=== PATIENT | female | born 1940 | race Caucasian/White ===

== ENCOUNTER 2019-01-25 13:54 | Inpatient (IN) ==
[2019-01-25] MEDS ORDERED: DUONEB (A & A) INH ONE (14:35)
[2019-01-25] MEDS ORDERED: ALBUTEROL NEB INH ONE (14:35)
[2019-01-25 15:10] LABS: BASO# 0.03 X1000 (0.0-0.2); BASO% 0.2 % (0.0-0.8); EOS# 0.02 X1000 (0.0-0.7); EOS% 0.2 % (0.0-10.0); HEMATOCRIT 35.3 % (37.0-47.0); HEMOGLOBIN 11.3 g/dL (12.0-16.0); IMM GRAN# 0.05 X1000 (0.0-0.04); IMM GRAN% 0.4 % (0.0-0.5); LYMPH# 1.87 X1000 (1.2-3.4); LYMPH% 14.9 % (20.5-51.1); MCH 32.6 PG (27-31); MCV 101.7 FL (81-99); MONO# 1.97 X1000 (0.11-0.59); MONO% 15.7 % (1.7-9.3); MPV 11.2 FL (7.4-10.4); NEUT# 8.57 X1000 (1.4-6.5); NEUT% 68.6 % (42.2-75.2); PLT 236 X1000 (130-400); RBC 3.47 XMIL (4.2-5.4); RDW 13.4 % (11.5-14.5); WBC 12.51 X1000 (4.8-10.8)
[2019-01-25 15:28] LABS: ALBUMIN 4.2 g/dL (3.5-5.0); CALCIUM 10.5 mg/dL (8.8-10.2); CREATININE 1.2 mg/dL (0.5-0.9); POTASSIUM 4.4 mmol/L (3.5-5.1); TOTAL BILIRUBIN 0.5 mg/dL (0.20-1.00)
[2019-01-25 15:52] LABS: BANDS 8 % (0-1); LYMPHS 14 % (21-51); MONO 14 % (1-9); SEGS 64 % (42-75)
[2019-01-25 15:53] LABS: ANISOCYTOSIS OCCASIONAL
[2019-01-25 15:54] LABS: LARGE PLATELETS 2+
--- NOTE | 2019-01-25 16:23 | Diag Imaging Result Doc PS360 ---
EXAM: CHEST-1 VIEW 01/25/2019 HISTORY: SOB TECHNIQUE: AP portable at 1545 COMMENT: There is slightly increased interstitial markings in the lung bases, however the lungs are not as well-expanded as on 05/30/2018. The heart size is not enlarged. IMPRESSION: Questionable interstitial pulmonary edema. Electronically signed by Rajendra Lagos 01/25/2019 4:21 PM
--- NOTE | 2019-01-25 16:57 | PROVIDER DOCUMENTATION ---
This chart was entered by Kristine Ribera Scribe, acting as scribe for Chema Araya MD. HPI-General Adult - General Chief Complaint: Cough Stated Complaint: COPD, COLD SX Time Seen by Provider: 01/25/19 14:22 Source: patient, family Allergies/Adverse Reactions: Patient Allergies Allergy/AdvReac Type Severity Reaction Status Date / Time codeine [Codeine] AdvReac Severe NAUSEA/VOMI Verified 01/25/19 14:11 TING hydrocodone bitartrate * AdvReac Severe NAUSEA/VOMI Verified 01/25/19 14:11 [From Correll] TING hydromorphone HCl * AdvReac Severe NAUSEA/VOMI Verified 01/25/19 14:11 [From Dilaudid] TING meperidine HCl * AdvReac Severe NAUSEA/VOMI Verified 01/25/19 14:11 [From Demerol] TING morphine AdvReac Severe NAUSEA/VOMI Verified 01/25/19 14:11 TING Home Medications: Home Medication List Medication Instructions Recorded Confirmed Last Taken Type Esomeprazole [Nexium] 40 mg PO DAILY 03/25/12 01/25/19 04/16/15 10:00 History 40 Metoprolol Tartrate 50 mg PO BID 07/07/14 01/25/19 04/17/15 05:30 History 50 Losartan Potassium [Cozaar] 100 mg PO HS 03/11/15 01/25/19 04/16/15 20:00 History 100 Simvastatin [Zocor] 80 mg PO HS 03/11/15 01/25/19 04/16/15 20:00 History 80 Verapamil HCl [Verelan] 240 mg PO DAILY 03/11/15 01/25/19 04/17/15 05:30 History 240 - History of Present Illness -Gen Adult Nature of Presenting Problems: 78 yof presents to the ed with c/o sob worsening with exertion, bodyaches, productive cough with gren sputum and subjective fever for 2 days. pt oes sts she has COPD Location of Pain/Injury: reports: generalized (bodyaches) Quality of Pain: reports: aching Severity: reports: mild Onset/Duration: reports: 2 days ago Timing: reports: still present, intermittent Context/Activities at Onset: reports: light activity Modifying Factors: worse with: exercise Associated Symptoms: reports: back/neck pain (thoracic), fatigue, fever/chills, muscle aches, shortness of breath. denies: chest pain, nausea, vomiting Similar Symptoms Previously?: Yes (hx of COPD) Recently seen or treated by another doctor?: No Review of Systems - Adult - REVIEW OF SYSTEMS - ADULT Constitutional: reports: see HPI, chills, fever, fatique Eyes: reports: no symptoms reported Ears, Nose, Mouth & Throat: reports: no symptoms reported Cardiovascular: denies: chest pain, palpitations Respiratory: reports: cough (green sputum), dyspnea on exertion, shortness of breath Gastrointestinal: denies: abdominal pain, diarrhea, nausea, vomiting Genitourinary: reports: no symptoms reported Musculoskeletal: reports: see HPI, back pain (thoracic), muscle aches. denies: neck pain Integumentary: reports: no symptoms reported Neurological: denies: dizziness/vertigo, headache/migraines Psychiatric: reports: no symptoms reported Endocrine: reports: no symptoms reported Hematologic/Lymphatic: reports: no symptoms reported Allergic/Immunologic: reports: no symptoms reported All Other Systems: Reviewed and Negative Past History - Adult - PAST MEDICAL HISTORY-ADULT Review of Records: reports: Old Records Reviewed, Nursing Assessment Review, Medications Reviewed, Social history reviewed & non-contributory. Major Childhood Illnesses: reports: denies history Cardiovascular: reports: CAD, HTN, hyperlipidemia Respiratory: reports: denies history Gastrointestinal: reports: GERD Obstetrical/Gynecological: reports: denies history Genitourinary: reports: denies history Musculoskeletal: reports: denies history Hand Dominance: Right Handed Neurological: reports: denies history Psychiatric: reports: denies history Endocrine/Immune: reports: denies history Other Conditions: reports: denies history - PRIOR SURGERIES/PROCEDURES Surgical/Procedure History: reports: cholecystectomy, hysterectomy, , orthopedic (extremity) (knee ), other (brain; bladder tact) - PRIOR HOSPITALIZATIONS Prior Hospitalizations: reports: for other non-related - IMMUNIZATION STATUS Childhood Immunizations: See Nurse Assessment Flu Vaccine: See Nurse Assessment - FAMILY HISTORY Family History: reviewed, not pertinent - SOCIAL HISTORY Smoking: quit greater than 1 year Substance Use: denies Living Situation: family Physical Exam-General - PHYSICAL EXAM-ADULT Initial Vital Signs Reviewed: Yes - CONSTITUTIONAL General Appearance: appears well, alert, mild distress, obese - EYES Eyes: PERRL/EOMI, pink conjunctivae - HEAD, EARS, NOSE, MOUTH & THROAT HENMT: normocephalic/atraumatic, moist mucous membranes - NECK Neck: non-tender, full range of motion, supple, normal inspection - RESPIRATORY Respiratory: respiratory distress (mild), decreased breath sounds, other (89% on RA) - CARDIOVASCULAR Cardiovascular: normal peripheral pulses, regular rate, rhythm - CHEST (BREASTS) Chest/Breast: deferred - GASTROINTESTINAL (ABDOMEN) Abdominal Exam: normal bowel sounds, non tender, soft - GENITOURINARY Female Genitalia/Pelvic Exam: deferred Rectal Exam: deferred Hemoccult Exam: deferred - LYMPHATIC Lymphatic: no adenopathy - MUSCULOSKELETAL Back Exam: normal inspection, no CVA tenderness, no vertebral tenderness, other (upper thoracic back tenderness with palpation) Extremity: normal range of motion, non-tender, normal inspection, no pedal edema Progress - PLAN OF CARE/RESULTS Progress/Plan/Lab Results: Vital Signs - 8 hr 01/25/19 14:06 Temperature 98.1 F Pulse Rate 76 Respiratory Rate 22 Blood Pressure 115/54 O2 Sat by Pulse Oximetry 89 L Orders Category Date Time Status CHEST-1 VIEW [RAD] Stat Exams 01/25/19 14:35 Ordered BLOOD CULTURE [BLDCUL] Stat Lab 01/25/19 14:35 Uncollected CBC WITH DIFF [HEME] Stat Lab 01/25/19 14:34 Uncollected COMPREHENSIVE METABOLIC PANEL [CHEM] Stat Lab 01/25/19 14:35 Uncollected Albuterol 2.5MG/Ipratrop 0.5MG [Duoneb (A & A)] Med 01/25/19 14:35 Discont inued 3 ml INH NOW ONE Albuterol [Albuterol Neb] Med 01/25/19 14:35 Discontinued 5 mg INH NOW ONE Aerosol Treatments Routine Oth 01/25/19 14:35 Active Aerosol Treatments Stat Oth 01/25/19 14:35 Active Result Diagrams: 01/25/19 14:51 01/25/19 14:51 - REASSESSMENT Reassessment #1 Time Reassessed: 16:53 (pt sts feels better but when pt came off O2 sat dropped to 89% so pt was placed back on NC and dr rust hospitalist was paged to admit) Status: improving - XRAY 1 XRAY: Bilateral XRAY Study: Chest Impression: See EMR Report (EXAM: CHEST-1 VIEW 01/25/2019 HISTORY: SOB TECHNIQUE: AP portable at 1545 COMMENT: There is slightly increased interstitial markings in the lung bases, however the lungs are not as well- expanded as on 05/30/2018. The heart size is not enlarged. IMPRESSION: Questionable interstitial pulmonary edema. Electronically signed by Rajendra Lagos 01/25/2019 4:21 PM 01/25/19 1621 Interpreting Physician: Rajendra Lagos MD Dictated Date/Time: 01/25/19 1620 cc: Chema Araya MD; Nelly Hair MD) - CONSULTS/PCP/HOSPITALIST Notification #1 *Consult/PCP/Hospitalist*: hospitalist dr rust Time Discussed: 16:54 Consult Disposition: Admit Departure - Departure Date of Disposition Decision: 01/25/19 Time of Disposition Decision: 16:57 DIAGNOSIS: COPD exacerbation, Hypoxia Disposition: ADMITTED INPATIENT 09 Certified Medical Emergency: Emergent Condition: Stable Referrals and Follow-Ups: Nelly Hair MD [Primary Care Provider] - - Critical Care Note This patient required my direct & personal management of CC.: No Attestation - Physician/ YULI Attestation Patient care was provided by Advanced Practice Provider:: No The physician spent face to face time with patient:: Yes Advanced Practice Provider documentation review:: Supervising physician onsite and consulted in the evaluation and care of this patient. The physician did have a face to face encounter with the patient. This chart was documented by the indicated scribe, (Kristine Ribera Scribe) and accurately reflects the services I performed and decisions made by me, Chema Araya MD, as attested by the provider's signature.
--- NOTE | 2019-01-25 19:43 | HISTORY AND PHYSICAL ---
PRIMARY CARE PROVIDER: Dr. Nelly Hair. [facility] TECHNICIAN: Dr. Swift. CHIEF COMPLAINT: Shortness of breath. HISTORY OF PRESENT ILLNESS: Ms. Perea is a 78-year-old female, who carries a past medical history of coronary artery disease, hypertension, hyperlipidemia, GERD, COPD, hard of hearing, wears bilateral hearing aids, who reported yesterday she started having some shortness of breath with fever, chills, wheezing, a productive cough with greenish sputum. She reports a couple months ago she was diagnosed with a UTI. She was placed on antibiotics. After finishing her course of antibiotics, she developed an upper respiratory infection. She went to see her [employer] who felt that she was still having a lingering upper respiratory infection and placed her on antibiotics again. She she felt she got better and again after she finished a round of antibiotics, the next day she felt her upper respiratory infection and came back, and has felt like her chest has been junky since that time. However, her shortness of breath did not start until yesterday. Workup in the ED did show a mild leukocytosis with a white count of 12. Chest x- ray showed a questionable interstitial pulmonary edema. She was placed on supplemental O2 and given bronchodilator. She did have some improvement. However, when they would try to take her off the supplemental O2, her O2 saturations would go back into the 80s, so the ED has called for admission for COPD exacerbation. She is currently refusing to have IV steroids secondary to an allergy that causes hypertension. PAST MEDICAL HISTORY: 1. COPD. 2. Hard of hearing, bilateral hearing aids. 3. Coronary artery disease. 4. Hypertension. 5. Hyperlipidemia. 6. Gastroesophageal reflux disease. PAST SURGICAL HISTORY: 1. Cholecystectomy. 2. Partial hysterectomy. 3. section. 4. Knee surgery. 5. Brain compression surgery by Dr. Hoyt. 6. Bladder tack. FAMILY HISTORY: Father from some type of cancer in his lung cavity, but no diabetes, no heart disease. SOCIAL HISTORY: She has 5 children, 19 grandchildren, 22 great-grandchildren. She quit smoking 2 years ago. She had smoked for 50 years, 2 packs per day. No alcohol or illicit drug use. ALLERGIES: 1. Steroids, causes hypertension. 2. Codeine, nausea, vomiting. 3. [place], nausea, vomiting. 4. Dilaudid, nausea, vomiting. 5. Demerol, nausea, vomiting. 6. Morphine, nausea, vomiting. HOME MEDICATIONS: 1. Nexium 40 mg p.o. daily. 2. Cozaar 100 mg p.o. at bedtime. 3. Metoprolol 50 mg p.o. b.i.d. 4. Zocor 80 mg p.o. at bedtime. 5. Verelan 240 mg p.o. daily. REVIEW OF SYSTEMS: Twelve-point review of systems complete and negative except for those mentioned in HPI. Negative for headache, chest pain, palpitations, nausea, vomiting, diarrhea, constipation, dysuria, bright red or dark tarry stools. PHYSICAL EXAMINATION: VITAL SIGNS: Temperature is 98.3 degrees, heart rate 84, respirations 22, blood pressure 119/93, O2 is 94% on 2 L nasal cannula. GENERAL: Ms. Perea is a pleasant, 78-year-old female who is sitting up in the stretcher in no acute distress. HEENT: Atraumatic, normocephalic. PERRL. NECK: Supple. Trachea midline. CARDIOVASCULAR: S1, S2 appreciated. No murmurs, gallops, or rubs noted. RESPIRATORY: Lung sounds tight. She does have some mild expiratory wheezes, bilaterally decreased in the bases. GI: Soft, nontender, nondistended. Positive bowel sounds in 4 quads. EXTREMITIES: Lower extremities are negative for edema. Bilateral pedal pulses are palpable. She moves all extremities well. NEUROLOGIC: No focal deficits noted. She is hard of hearing with two hearing aids in. DIAGNOSTIC DATA: Chest x-ray: Questionable interstitial pulmonary edema. LABORATORY DATA: White count 12, hemoglobin and hematocrit 11 and 35, platelet count is 236,000. Sodium 140, potassium 4.4, BUN 20, creatinine 1.2, blood glucose is 109, calcium 10.5. ProBNP is 747. ASSESSMENT AND PLAN: 1. Chronic obstructive pulmonary disease exacerbation. Will continue with supplemental oxygen, bronchodilators, intravenous antibiotics, aggressive pulmonary toilet. The patient refuses steroids, citing an allergy of hypertension. We did discuss that could just be a side effect; however, she states adamantly that she cannot take it or tolerate it. Blood cultures and sputum cultures will be obtained. 2. Hypoxia. Will continue on supplemental oxygen. 3. Hypertension. Will continue home medications. 4. Hyperlipidemia. Continue statin. 5. Gastroesophageal reflux disease. Continue proton pump inhibitor. 6. Further recommendations to follow physician evaluation and laboratory and diagnostic data. Dictated by ROSA Aguiar for Juan Pablo Garcia MD cc: Juan Pablo Garcia MD
[2019-01-25] MEDS ORDERED: NS 1,000 ML IV SCH (20:12)
[2019-01-25] MEDS ORDERED: ZOFRAN IV PRN (20:12)
[2019-01-25] MEDS ORDERED: DUONEB (A & A) INH PRN (20:12)
[2019-01-25] MEDS: DUONEB (A & A) INH SCH ×2 (20:22→23:54)
[2019-01-25] MEDS: COZAAR PO SCH (21:40)
[2019-01-25 22:23] LABS: URINE SOURCE CLEAN CATCH
[2019-01-25] MEDS: TYLENOL PO PRN (22:23)
[2019-01-25] MEDS: ZOCOR PO SCH (22:23)
[2019-01-25] MEDS: LEVAQUIN 500 MG/D5W 500 MG/100 ML IVPB IV SCH (22:24)
[2019-01-25] MEDS: MUCINEX PO SCH (22:24)
[2019-01-25 22:28] LABS: BILIRUBIN URINE NEGATIVE (NEGATIVE); BLOOD URINE NEGATIVE (NEGATIVE); COLOR YELLOW; GLUCOSE URINE NEGATIVE (NEGATIVE); KETONE URINE TRACE mg/dL (NEGATIVE); LEUKOCYTES URINE LARGE (NEGATIVE); NITRITE URINE NEGATIVE (NEGATIVE); PROTEIN URINE 50 mg/dL (NEGATIVE); SP GRAVITY URINE 1.027; TURBIDITY URINE HAZY (CLEAR); UROBILINOGEN URINE 3 mg/dL (NORMAL)
[2019-01-25 22:43] LABS: URINE WBC TNTC /HPF (<10)
[2019-01-25 22:45] LABS: URINE RBC <10 /HPF (<10)
[2019-01-25 22:46] LABS: UR EPITHELIAL CELLS >10 /HPF (<10); URINE BACTERIA 4+ /HPF; URINE CASTS EPITHELIAL PRESENT; URINE CRYSTALS NONE SEEN; URINE SMALL ROUND CELLS NONE SEEN
[2019-01-25 22:47] LABS: URINE YEAST PRESENT
--- NOTE | 2019-01-25 23:37 | HISTORY AND PHYSICAL ---
ADDENDUM: Patient seen and examined by myself. Full note dictated and discussed with nurse practitioner. The patient presented to the hospital with increased cough and congestion, and increased work of breathing. She noted that she was at home, she got in the shower and she got very hot and lightheaded. She states she was not sure if she was going to be able to finish or not due to her shortness of breath. Her children then made her come to the hospital. Currently, she is awake, alert, oriented. Pleasant. We are going to admit her to the hospital, place her on breathing treatments, oxygen and will follow. cc: Juan Pablo Garcia MD MTDD
[2019-01-26] MEDS: DUONEB (A & A) INH SCH ×6 (03:14→23:18)
--- NOTE | 2019-01-26 05:59 | Diag Imaging Result Doc PS360 ---
EXAM: CHEST-PORTABLE HISTORY: short of breath TECHNIQUE: Single view COMPARISON: 01/25/2019 FINDINGS: The lungs are well expanded. No cardiomegaly. The bilateral infiltrates. Questionable tiny left pleural effusion. IMPRESSION: Mild interval worsening Electronically signed by Jono Field 01/26/2019 5:56 AM
[2019-01-26] MEDS: NEXIUM PO SCH (06:20)
[2019-01-26 06:46] LABS: BASO# 0.01 X1000 (0.0-0.2); BASO% 0.1 % (0.0-0.8); EOS# 0.02 X1000 (0.0-0.7); EOS% 0.2 % (0.0-10.0); HEMATOCRIT 31.1 % (37.0-47.0); HEMOGLOBIN 9.7 g/dL (12.0-16.0); IMM GRAN# 0.09 X1000 (0.0-0.04); IMM GRAN% 0.9 % (0.0-0.5); LYMPH% 14.1 % (20.5-51.1); MCHC 31.2 g/dL (33-37); MCV 102.6 FL (81-99); MONO# 1.83 X1000 (0.11-0.59); MONO% 18.4 % (1.7-9.3); MPV 11.5 FL (7.4-10.4); NEUT% 66.3 % (42.2-75.2); PLT 214 X1000 (130-400); RBC 3.03 XMIL (4.2-5.4); RDW 13.4 % (11.5-14.5); WBC 9.95 X1000 (4.8-10.8)
[2019-01-26 06:55] LABS: POTASSIUM 3.9 mmol/L (3.5-5.1)
[2019-01-26 07:06] LABS: ANISOCYTOSIS 1+; LYMPHS 17 % (21-51); MONO 16 % (1-9); SEGS 67 % (42-75)
[2019-01-26] MEDS: TYLENOL PO PRN (08:12)
[2019-01-26] MEDS: MUCINEX PO SCH ×2 (08:12→20:19)
[2019-01-26] MEDS ORDERED: LASIX IV ONE (10:41)
[2019-01-26] MEDS ORDERED: SEROQUEL PO PRN (10:42)
[2019-01-26] MEDS ORDERED: SOLU-MEDROL IV ONE (10:42)
--- NOTE | 2019-01-26 15:43 | PROGRESS NOTE ---
DATE: 01/26/2019 SUBJECTIVE: Patient with no new complaints. States she is still short of breath, still coughing, still having difficulty getting out of bed due to her fatigue. OBJECTIVE: Vital Signs: T-max 101 degrees, pulse 81, respiratory rate 18, BP 127/42. General: Patient is in minimal respiratory distress, although she is lying flatly in the bed and has just received a breathing treatment. HEENT: Normocephalic. Neck: Supple. Cardiovascular: Regular rate. Chest: Clear but decreased breath sounds bilaterally. No rhonchi. No current wheezing. Abdomen: Soft, nondistended. Extremities: Moves all extremities. No edema. Neurologic: No changes. ASSESSMENT: 1. Chronic obstructive pulmonary disease with exacerbation. 2. History of congestive heart failure per the family. 3. Hypoxemia. 4. Hypertension. 5. Hyperlipidemia. 6. Leukocytosis. 7. Anemia of chronic disease with hemoglobin and hematocrit of 9 and 37. PLAN: We are going to continue patient in the hospital. We are going to give her 1 low dose [address]rol[address] her on Lasix. Stop her IV fluids. Continue breathing treatments, oxygen, and will follow. cc: Juan Pablo Garcia MD
[2019-01-26] MEDS: ISOPTIN SR PO SCH (16:09)
[2019-01-26] MEDS: LOPRESSOR PO SCH ×2 (16:10→20:20)
[2019-01-26] MEDS: COZAAR PO SCH (20:20)
[2019-01-26] MEDS: LEVAQUIN 500 MG/D5W 500 MG/100 ML IVPB IV SCH (20:20)
[2019-01-26] MEDS: ZOCOR PO SCH (20:20)
[2019-01-27] MEDS: DUONEB (A & A) INH SCH ×3 (02:49→12:07)
[2019-01-27] MEDS: NEXIUM PO SCH (06:04)
[2019-01-27 07:43] VITALS: BP 117/62
[2019-01-27] MEDS: LOPRESSOR PO SCH (09:03)
[2019-01-27] MEDS: ISOPTIN SR PO SCH (09:03)
--- NOTE | 2019-01-27 09:43 | DISCHARGE SUMMARY ---
ADMISSION DATE: 01/25/2019 DISCHARGE DATE: 01/27/2019 DISCHARGE DIAGNOSES: 1. Chronic obstructive pulmonary disease with exacerbation. 2. Leukocytosis, resolved. 3. Hypoxic respiratory failure, resolved. 4. Hypertension, stable. 5. Hyperlipidemia. CONSULTATIONS: None. PROCEDURES: None. BRIEF HOSPITAL COURSE: Patient is a 78-year-old female who presented to the hospital with increased cough, congestion, increased work of breathing, increased shortness of breath. She was placed on very low-dose 20 mg IV Solu-Medrol which she tolerated well as well as breathing treatments. On discharge, she notes that her breathing is back to normal. She is feeling better and is asking to go home. DISPOSITION: Patient will be discharged home. TIME SPENT: Greater than 30 minutes was spent in total care and discussion regarding how and when to use breathing treatments. She will be discharged with albuterol as well as a nebulizer. FOLLOWUP: She will follow up outpatient with her primary care, Dr. Hair. We did not discharge her home on steroids. cc: Juan Pablo Garcia MD
== END 2019-01-27 12:40 | disposition home or self-care (01) | DRG 190 ==
LOC: P.ED 13:54 → P.MEDSURG 13:55
PROVIDERS: ATTEND Family Medicine